=== PATIENT | male | born 1950 | race Caucasian/White ===

== ENCOUNTER → 2016-05-20 | Day surgery (SDC) | payer BC ==
[~2016-05-20] MED LIST: ACETAMINOPHEN/HYDROcodone 325 MG/5 MG TAB ONE; ADVI200C9 PO; AVOD0.5C PO; BUPIVACAINE HCL PF 0.25% 30 ML VIAL ONE; DICL75 PO; LACTATED RINGER'S 1000 ML INJ 1,000 ML ONE; MIDAZOLAM HCL 2 MG/2 ML VIAL ONE; PANT20 PO; PROPOFOL 200 MG/20 ML AMP IV ONE; TAMS0.4C67 PO; ceFAZolin 2 GM PREMIX 50 ML ONE
--- NOTE | 2016-05-25 10:16 | MP ---
cc: [facility] DATE OF SURGERY 05/20/2016 PREOPERATIVE DIAGNOSES 1. Left hallux abductovalgus, painful bunion. 2. Left second digit hammertoe. 3. Third digit hammertoe. 4. Metatarsalgia. POSTOPERATIVE DIAGNOSES 1. Left hallux abductovalgus, painful bunion. 2. Left second digit hammertoe. 3. Third digit hammertoe. 4. Metatarsalgia. PROCEDURES PERFORMED 1. Left first metatarsal osteotomy. 2. Second digit PIPJ fusion. 3. Third digit the PIPJ fusion. 4. Second metatarsal osteotomy. 5. Third metatarsal osteotomy. SPECIMEN None. ESTIMATED BLOOD LOSS Less than 30 mL. MATERIALS USED Two 2.5 [employer] Dart-Fire cannulated screws. Two 3.0 [employer] Dart-Fire cannulated screws. Two 0.54 K-wires. COMPLICATIONS None. ANESTHESIA General anesthesia, 20 cc of 0.25% Marcaine plain. TOURNIQUET TIME 77 minutes at a setting of 215 mmHg. PLAN OF ACTIVITY PACU then D/C home once stable per same-day surgery criteria. JUSTIFICATION FOR PROCEDURE A 66-year-old male with worsening pain and inability to exercise and wear normal shoe gear due to severe hammertoe contractures and a large bunion. We devised a plan to move forward with surgical intervention after failing conservative measures. No guarantees were given or implied regarding the outcome. PROCEDURE IN DETAIL Under mild sedation the patient was brought to the operating room, placed on the operating table in supine position. The patient was then intubated and sedated. The left lower extremity was scrubbed, prepped and draped in the usual aseptic fashion. The foot was elevated, exsanguinated and a previously placed mid-ankle tourniquet was inflated to 215 mmHg. An incision made over the dorsal aspect of the first MPJ and by sharp and blunt dissection was carried down to the first MPJ joint capsule. Venous structures that were encountered were Bovied and ligated as deemed necessary. The incisions was just medial to the extensor hallucis longus tendon. An L-shaped capsulotomy was performed revealing mild arthritic findings of the dorsomedial eminence. This eminence was then resected, then a McGlamry elevator was introduced deep in the first MPJ, freeing up plantar lateral contractures and offset V-osteotomy was performed. The capital fragment was transposed laterally 3-4 mm and fixated utilizing proper A-O technique x 2 screws dorsal distal to plantar proximal, perpendicular to the osteotomy in the long arm. There was compression across the osteotomy site. The prominent redundant shelf proximally was resected and was flushed with copious amounts of normal saline. There is noted to be hypertrophy of the joint capsule which was debulked at this point. The capsule was then repaired utilizing Vicryl. The deep dermis was closed utilizing Monocryl. The skin was closed utilizing nylon. The procedure that is next to be dictated was the same procedure that was performed on the second digit and the second metatarsal and was the same as the third digit and third metatarsal. An incision was made over the respective digit at the level of the PIPJ which was slightly curvilinear at the level of the MPJ. Sharp and blunt dissection was carried down to a bow-strung extensor digitorum longus tendon which the sling wing apparatus was then transected and the deep tendon with lengthening approach took place. Sharp and blunt dissection was carried down to the level of the proximal phalanx, head and the base of the middle phalanx. Utilizing power instrumentation, the head was then resected at this time as well as the base of the middle phalanx. The wound was flushed with copious amounts of normal saline. Further sequential release was performed. A linear capsulotomy was performed at the level of the MPJ and McGlamry elevator was introduced into the MPJ freeing up medial plantar and lateral contractures. Next, a dorsal distal to plantar proximal osteotomy was performed at the metatarsal head just at the dorsal two-thirds of the articular surface. The metatarsal head was then transposed proximally 2-3 mm and fixated utilizing proper AO technique with x1 2.5 screw. The dorsal shelf was then transected allowing for ease of range of motion of the base of the proximal phalanx at the metatarsal head. Next a K-wire was then placed to the middle phalanx to the distal phalanx and retrograded back across the proximal phalanx, anchoring in the base of the proximal phalanx, securing the arthrodesis site of the PIPJ of the respective digit. The wound was flushed with copious amounts of normal saline. Fluoroscopy was used to visualize the anatomic alignment of the screws and correction of hammertoe and bunion deformities two and three. At this time the tendon extensor digitorum longus was then repaired under loose physiologic tension utilizing Vicryl. The dermis was closed utilizing Monocryl. The skin was closed utilizing nylon. Upon relieving the tourniquet there was noted to be a prompt hyperemic response to all digits, specifically the second and third as well as the first. A bulky bandage was placed. The patient was then positioned within a controlled ankle motion boot. He was transferred from OR to PACU with all vital signs stable. DISCHARGE INSTRUCTIONS He will ice, elevate, partial weight-bear to tolerance of the heel. I will see the patient within 3-5 days. YAIMA Shankar/MACEY /3:29 PM /10:00 AM
== END | disposition home or self-care (01) ==
LOC: ESDC 12:02
PROVIDERS: ATTEND Podiatrist Foot & Ankle Surgery
DX: M20.12 Hallux valgus (acquired), left foot (principal); M21.612 Bunion of left foot; M20.42 Other hammer toe(s) (acquired), left foot; M77.42 Metatarsalgia, left foot
CPT/HCPCS: 01480; 28285; 28306; 28308; 73630; 76000; C1713; J0690; J2250; J3010; J7120